=== PATIENT | female | born 1975 | race Hispanic/Latino ===

== ENCOUNTER 2016-05-14 08:27 | Emergency (ER) | payer OTHER ==
[~2016-05-14] VITALS: Ht 154.9 cm; Wt 67.1 kg
[2016-05-14 08:31] VITALS: BP 121/73
--- NOTE | 2016-05-14 08:40 | ED NECK/BACK PAIN COMPLAINT ---
History of Present Illness General Chief Complaint: Low Back Pain/Injury Stated Complaint: LBP Source: patient, old records Exam Limitations: no limitations Vital Signs & Intake/Output Vital Signs & Intake/Output Vital Signs Date Time Temp Pulse Resp B/P Pulse O2 O2 Flow FiO2 Ox Delivery Rate 05/14 0831 98.1 73 20 121/73 99 Room Air Allergies Coded Allergies: No Known Allergies (05/14/16) Reconcile Medications Cyclobenzaprine HCl 5 MG TABLET 1 TAB PO TIDPRN PRN pain Oxycodone HCl/Acetaminophen (Percocet 5-325 MG Tablet) 5 MG-325 MG TABLET 1 TAB PO TID PRN pain Triage Note: 40 Y/O FEMALE C/O PAIN TO R SIDED BACK, ONSET THIS AM AFTER REACHING FOR COFFEE CUP. TOOK 600MG IBUPROPHEN WITHIN THE HOUR. Triage Nurses Notes Reviewed? yes Onset: Abrupt Duration: hour(s): (2), constant, waxing and waning Timing: recent history Quality/Severity: moderate, ACHING Location: lumbar spine Radiation: none Method of Injury: twisted Loss of Consciousness: no loss of consciousness Modifying Factors: movement, rest Associated Symptoms: DENIES : No Patient currently breastfeeds: No HPI: 40-year-old female with history of lumbar spine fusion 10 years ago presents emergency room complaining of sudden onset right lower back pain since this morning when she reached for her coffee.. She states the pain has been constant or worse with change in position better at rest. She took 600 mg of ibuprofen prior to arrival without improvement there is no fall the pain is nonradiating no dysuria or urgency frequency or hematuria no vaginal bleeding or discharge. She denies any numbness or tingling down her leg no urinary or bowel incontinence or saddle anesthesia (TRUONG MAHARAJ) Past History Travel History Traveled to [place] past 21 day No Medical History Any Pertinent Medical History? none Neurological: NONE EENT: NONE Cardiovascular: NONE Respiratory: NONE Gastrointestinal: NONE Hepatic: NONE Renal: NONE Musculoskeletal: NONE Psychiatric: NONE Endocrine: NONE Blood Disorders: NONE Cancer(s): NONE MAINFRAME SYSTEMS ADMINISTRATOR/Reproductive: NONE Surgical History Surgical History: none Psychosocial History What is your primary language Micronesian Tobacco Use: Never used Family History Hx Contributory? No (TRUONG MAHARAJ) Review of Systems Review of Systems Constitutional: Reports: see HPI. All Other Systems: Reviewed and Negative Comments Review of systems: See HPI, All other systems negative. Constitutional, no chills no fever, no malaise HEENT: no sore throat no congestion, no ear pain Cardiovascular: No chest pain , no palpitation Skin, no rashes, no change in skin Respiratory: No dyspnea no cough no sputum GI: No nausea no vomiting, no diarrhea : No dysuria No hematuria, Muscle skeletal: No joint pain, no joint swelling, no back pain, no neck pain, Neurologic: no headache Psych: No stress Heme/endocrine: No bruising no bleeding Immunology: No lymphadenopathy (TRUONG MAHARAJ) Physical Exam Physical Exam General Appearance: well developed/nourished, no apparent distress, alert, awake Neck: normal inspection, supple, full range of motion, normal alignment Comments: Well-developed well-nourished patient in no apparent distress. HEENT: Atraumatic, extraocular motion intact Neck: Supple, FROM Back: FROM, tenderness patient is a right paralumbar muscular, there is no ecchymosis or signs of trauma no midline tenderness Cardiovascular: Regular rate and rhythms no murmurs rubs Respiratory: No respiratory distress. Patient speaking in full complete sentences. Breath sounds clear to auscultation bilaterally: NO W/R/R Abdomen: Soft nontender no rebound or guarding Extremities: full range of motion Neuro: Alert and oriented x3 Skin: Warm & dry;No appreciable rash on exposed skin Psych: Mood affect normal, normal memory normal judgment. (TRUONG MAHARAJ) Progress Differential Diagnosis: cauda equina syn, herniated disc, myofascial strain, pyelo/UTI, sciatica, spinal cord inj, T/L spine injury, ureterolithiasis Plan of Care: Current Medications Sig/Fabiana Start time Last Medication Dose Stop Time Status Admin Cyclobenzaprine HCl 5 MG ONCE ONE 05/14 899 AC (Flexeril 5MG Tab) 05/14 900 Ketorolac 30 MG ONE ONE 05/14 899 AC Tromethamine 05/14 900 (Toradol) Oxycodone/ 1 TAB ONCE ONE 05/14 899 AC Acetaminophen 05/14 900 (Percocet) Patient clinically looks well symptoms are worse with change in position and reproducible with palpation. Prescription for Percocet and Flexeril were provided patient medicated with Toradol Percocet and Flexeril here. She'll follow-up with her primary care physician. Patient has no evidence of radiculopathy. No urinary bowel dysfunction. No numbness in the genital area. Strength intact. Gross sensation intact. Patient resting comfortably and in no apparent distress. Pain is worse with range of motion. Pain is reproducible IN back with no bruising or ecchymosis noted. . Patient is to follow-up with primary care doctor. May need MRI of the lower back at some point time. No concerns for cauda equina at this point time. I considered this diagnosis but patient does not have any symptoms consistent with cauda equina. Patient has no secondary causes of back pain. No cardiac, pulmonary, or abdominal complaints. No abdominal pain on exam. Cardiac pulmonary exam within normal limits. No rashes, afebrile, denies recent weight loss, dizziness, lightheadedness (TRUONG MAHARAJ) Departure Departure Time of Disposition: 847 Disposition: HOME OR SELF CARE Condition: Stable Clinical Impression Primary Impression: Low back strain Referrals: EDUAR RHODES,KHUSHI Rdz (PCP/Family) Additional Instructions: rest, interchange ice and heat. motrin 600mg every 8 hours. percocet for breakthrough pain- use caution as this may make you drowsy: no driving or drinking alcohol while taking. flexeril as directed. these prescriptions were sent to the [facility]. Departure Forms: Customer Survey General Discharge Information Prescriptions: Current Visit Scripts Oxycodone HCl/Acetaminophen (Percocet 5-325 MG Tablet) 1 TAB PO TID PRN pain #10 TAB Cyclobenzaprine HCl 1 TAB PO TIDPRN PRN pain #12 TAB (TRUONG MAHARAJ) PA/WELT SEWER Co-Sign Statement Statement: ED Attending supervision documentation- [] I saw and evaluated the patient. I have also reviewed all the pertinent lab results and diagnostic results. I agree with the findings and the plan of care as documented in the PA's/WELT SEWER's documentation. [X] I have reviewed the ED Record and agree with the PA's/WELT SEWER's documentation. [] Additions or exceptions (if any) to the PAs/WELT SEWER's note and plan are summarized below: [] (ELDER PINO DO)
[2016-05-14] MEDS ORDERED: CYCLOBENZAPRINE5 M2 PO (08:49)
[2016-05-14] MEDS ORDERED: PERCOCET 5-3251 EACH PO (08:49)
== END 2016-05-14 09:01 ==
LOC: ERH 08:27
DX: S39.012A Strain of muscle, fascia and tendon of lower back, initial encounter (principal); X50.9XXA Other and unspecified overexertion or strenuous movements or postures, initial encounter
CPT/HCPCS: 96372; J1885